=== PATIENT | female | born 1990 | race Caucasian/White ===

== ENCOUNTER 2018-03-26 14:53 | Emergency (ER) | payer BC ==
[~2018-03-26] VITALS: Ht 167.6 cm; Wt 82.5 kg
[2018-03-26] MEDS ORDERED: FLEXERIL10 MG PO (17:30)
[2018-03-26] MEDS ORDERED: LORTAB 5-325 M1 EACH PO (17:30)
[2018-03-26] MEDS ORDERED: MOTRIN800 MG PO (17:30)
[2018-03-26 17:47] VITALS: BP 113/69
== END 2018-03-26 18:14 | disposition home or self-care (01) ==
LOC: EME 14:53
DX: S30.0XXA Contusion of lower back and pelvis, initial encounter (principal); M62.830 Muscle spasm of back; W00.0XXA Fall on same level due to ice and snow, initial encounter; Y93.22 Activity, ice hockey
CPT/HCPCS: 73502; 99281; 99284